=== PATIENT | male | born 1940 | race Asian ===

== ENCOUNTER 2018-07-01 16:36 | Emergency (ER) | payer MEDICARE ==
[~2018-07-01] VITALS: Ht 172.7 cm; Wt 73.5 kg
[2018-07-01 17:04] VITALS: Ht 172.7 cm; Wt 73.5 kg
[2018-07-01 18:31] VITALS: BP 130/90
== END 2018-07-01 18:31 | disposition home or self-care (01) ==
LOC: ED 16:36
DX: L89.319 Pressure ulcer of right buttock, unspecified stage (principal); G89.29 Other chronic pain; F32.9 Major depressive disorder, single episode, unspecified; Z88.0 Allergy status to penicillin
CPT/HCPCS: J1885